=== PATIENT | female | born 1935 | race Caucasian/White ===

== ENCOUNTER 2017-10-21 17:10 | Emergency (ER) | payer OTHER ==
--- NOTE | 2017-10-21 18:06 | RAD REPORT ---
EXAM DESCRIPTION: CT - Head Brain Wo Cont - 10/21/2017 5:54 pm CLINICAL HISTORY: Altered mental status, dementia COMPARISON: CT study April 2011 TECHNIQUE: Axial 5 mm thick images of the head were obtained without IV contrast. All CT scans are performed using dose optimization technique as appropriate and may include automated exposure control or mA/KV adjustment according to patient size. FINDINGS: No intracranial hemorrhage, mass, edema or shift of mid-line structures. No acute cortical based infarction. No cortical edema or sulcal effacement. Prominent atrophy and chronic ischemic will nges are present progressive from 2010. No abnormal extra-axial fluid collections. Ventricular size r emains in proportion to volume loss. Arterial and physiologic calcifications are present. Mastoid air cells are clear. Frontal and sphenoid sinuses are opacified but only partially imaged. Ex am is not sufficient for paranasal sinus assessment. No acute bony findings. IMPRESSION: No acute intracranial finding. Advanced atrophy and chronic ischemic change progressive from 2010. Sphenoid and frontal sinus mucosal thickening. Sinuses are not adequately visualized to allow all tho rough assessment.
[2017-10-21 18:38] LABS: Absolute Lymphocytes (CBC) 1.1 K/uL (0.7-4.9); Absolute Monocytes 0.4 K/uL (0.1-1.3); Absolute Neutrophil 8.2 K/uL (1.8-8.0); Basophils % 0.6 % (0-1.3); Eosinophils % 0.1 % (0-4.4); Hematocrit 40.1 % (36.0-45.0); Lymphocytes % 10.8 % (15.3-44.8); MCH 29.3 pg (27.0-35.0); MCV 90.3 fL (80-100); Monocytes % 4.5 % (3.3-12.3); RBC Red Blood Cell Count 4.44 M/uL (3.86-4.86)
[2017-10-21 18:52] LABS: Potassium 4.1 mEq/L (3.6-5.0)
[2017-10-21 18:53] LABS: Magnesium 1.9 mg/dL (1.8-2.5)
[2017-10-21] MEDS ORDERED: NA CHLORIDE 0.9% 500 ML ONE (18:54)
--- NOTE | 2017-10-21 19:11 | ER ---
Nurse's Notes [facility] Name: Katlyn Mercado Age: 81 yrs Sex: Female : 1935 Arrival Date: 10/21/2017 Time: 17:12 Bed 26 Private MD: Diagnosis: Tremor, unspecified;Dehydration Presentation: 10/21 17:19 Presenting complaint: EMS states: patient normally has tremors but staff report that kr2 today they are worse. Transition of care: [place], [place]. Onset of symptoms. Care prior to arrival: None. 17:19 Method Of Arrival: EMS: [facility] kr2 17:19 Acuity: FABI 4 kr2 Triage Assessment: 17:20 General: Appears in no apparent distress. comfortable, slender, well groomed, well kr2 developed, well nourished, Behavior is calm, cooperative. Pain: Unable to use pain scale. Does not appear to understand pain scale. Patient appears quiet. Historical: - Allergies: 17:23 Amoxicillin; kr2 17:23 Doxycycline; kr2 17:23 Etodolac; kr2 17:23 Ibuprofen; kr2 17:23 Iodine; kr2 17:23 Lovastatin; kr2 17:23 Naproxen; kr2 17:23 Sulindac; kr2 17:23 PENICILLINS; kr2 17:23 IROVAN; kr2 17:23 TROVAN; kr2 - Immunization history:: Adult Immunizations unknown. - Social history:: Smoking status: Patient/guardian denies using tobacco. - Family history:: not pertinent. - Hospitalizations: : No recent hospitalization is reported. Screenin:20 Abuse screen: Denies threats or abuse. Denies injuries from another. Nutritional kr2 screening: No deficits noted. Tuberculosis screening: No symptoms or risk factors identified. Fall Risk Secondary diagnosis (15 points) dementia, impaired mobility. Assessment: 17:20 General: Appears in no apparent distress. comfortable, slender, well groomed, well kr2 developed, well nourished, Behavior is calm, cooperative. Pain: Unable to use pain scale. Does not appear to understand pain scale. Patient appears quiet. Neuro: Level of Consciousness is awake, alert, Oriented to Patient is non-verbal, smiles when spoken too. Neuro: mild tremor. Cardiovascular: Capillary refill < 3 seconds in bilateral fingers Patient's skin is warm and dry. Respiratory: Airway is patent Respiratory effort is even, unlabored, Respiratory pattern is regular, symmetrical. GI: Abdomen is flat, non-distended. EENT: Nares are clear bilaterally Oral mucosa is dry. Derm: Skin is intact, is fragile, is thin, with poor turgor. Musculoskeletal: Circulation, motion, and sensation intact. 18:30 Reassessment: Patient appears in no apparent distress at this time. Patient and/or kr2 family updated on plan of care and expected duration. Pain level reassessed. No signs/symptoms of pain, patient's daughters remain at bedside with patient. 19:24 Reassessment: Patient appears in no apparent distress at this time. Patient and/or kr2 family updated on plan of care and expected duration. Pain level reassessed. Patient being discharged, report called to Aye at [facility] in [place]. 19:55 Reassessment: Patient appears in no apparent distress at this time. Patient and/or kr2 family updated on plan of care and expected duration. Pain level reassessed. Family remains at bedside. Called facility back and Aye states transportation would be about an hour getting here. 21:05 Reassessment: Patient appears in no apparent distress at this time. Patient and/or kr2 family updated on plan of care and expected duration. Pain level reassessed. Transportation here from [place] to transport patient back to facility. Assisted patient to wheelchair with assist of 2 staff members without difficulty. Vital Signs: 17:19 BP 113 / 80; Pulse 65; Resp 15; Temp 97.8(A); Pulse Ox 98% on R/A; kr2 19:23 BP 134 / 79; Pulse 60; Resp 19; Pulse Ox 98% on R/A; kr2 19:56 BP 131 / 83; Pulse 62; Resp 16; Pulse Ox 97% on R/A; kr2 21:00 BP 132 / 76; Pulse 60; Resp 15; Pulse Ox 97% on R/A; kr2 ED Course: 17:12 Patient arrived in ED. ss 17:19 Trevor Gimenez MD is Attending Physician. rn 17:19 Diana Cox, SONYA is Primary Nurse. kr2 17:20 Arm band placed on. kr2 17:20 Patient has correct armband on for positive identification. Bed in low position. Call kr2 light in reach. Side rails up X2. Adult w/ patient. Pulse ox on. NIBP on. 17:21 Triage completed. kr2 17:55 Missed attempt(s): 24 gauge in right antecubital area. Bleeding controlled, band aid kr2 applied, catheter tip intact. 17:58 Missed attempt(s): 22 gauge in right antecubital area. Bleeding controlled, band aid kr2 applied, catheter tip intact. 18:00 Inserted saline lock: 22 gauge in left antecubital area, using aseptic technique. Blood ss collected. 19:22 No provider procedures requiring assistance completed. IV discontinued, intact, kr2 bleeding controlled, No redness/swelling at site. Pressure dressing applied. Administered Medications: 18:38 Drug: NS 0.9% 500 ml Route: IV; Rate: bolus; Site: left antecubital; kr2 19:26 Follow up: Response: No adverse reaction; IV Status: Completed infusion kr2 Outcome: 19:10 Discharge ordered by . rn 19:22 Condition: good kr2 19:22 Discharge instructions given to family, [facility], Instructed on discharge instructions, follow up and referral plans. Demonstrated understanding of instructions, follow-up care. 21:10 Discharged to [facility]. Report called to Aye at [facility] Transfer form kr2 completed. 21:13 Patient left the ED. kr2 Signatures: Trevor Gimenez MD MD rn Smirch, Shelby, RN RN ss Reaves, Karey, RN RN kr2 Corrections: (The following items were deleted from the chart) 18:42 18:39 BP 113 / 80; Pulse 65bpm; Resp 15bpm; Pulse Ox 98% RA; Temp 97.8F Axillary; kr2 kr2
--- NOTE | 2017-10-21 19:11 | EDPHYS ---
Physician Documentation [facility] Name: Katlyn Mercado Age: 81 yrs Sex: Female : 1935 Arrival Date: 10/21/2017 Time: 17:12 Bed 26 Private MD: ED Physician Trevor Gimenez HPI: 10/21 18:18 This 81 yrs old Female presents to ER via EMS with complaints of Tremor. rn 18:18 Per long term, patient with hx of tremors, but worse today, no seizure like rn activity, no trauma, daughter states acting normal, does notice more of a tremor, states has been asked before if has parkinsons. . Onset: The symptoms/episode began/occurred at an unknown time. Severity of symptoms: At their worst the symptoms were mild in the emergency department the symptoms have improved. The patient has experienced similar episodes in the past. The patient has not recently seen a physician. Historical: - Allergies: 17:23 Amoxicillin; kr2 17:23 Doxycycline; kr2 17:23 Etodolac; kr2 17:23 Ibuprofen; kr2 17:23 Iodine; kr2 17:23 Lovastatin; kr2 17:23 Naproxen; kr2 17:23 Sulindac; kr2 17:23 PENICILLINS; kr2 17:23 IROVAN; kr2 17:23 TROVAN; kr2 - Immunization history:: Adult Immunizations unknown. - Social history:: Smoking status: Patient/guardian denies using tobacco. - Family history:: not pertinent. - Hospitalizations: : No recent hospitalization is reported. ROS: 18:18 Unable to obtain ROS due to baseline dementia. rn Exam: 18:18 Constitutional: This is a well developed, well nourished patient who is awake, alert, rn and in no acute distress. Head/Face: Normocephalic, atraumatic. Eyes: Pupils equal round and reactive to light, extra-ocular motions intact. Lids and lashes normal. Conjunctiva and sclera are non-icteric and not injected. Cornea within normal limits. Periorbital areas with no swelling, redness, or edema. ENT: dry lips, dry MM Neck: Trachea midline, no thyromegaly or masses palpated, and no cervical lymphadenopathy. Supple, full range of motion without nuchal rigidity, or vertebral point tenderness. No Meningismus. Cardiovascular: Regular rate and rhythm with a normal S1 and S2. No gallops, murmurs, or rubs. Normal PMI, no JVD. No pulse deficits. Respiratory: Lungs have equal breath sounds bilaterally, clear to auscultation and percussion. No rales, rhonchi or wheezes noted. No increased work of breathing, no retractions or nasal flaring. Abdomen/GI: Soft, non-tender, with normal bowel sounds. No distension or tympany. No guarding or rebound. No evidence of tenderness throughout. Skin: Warm, dry, no evidence of cellulitis. MS/ Extremity: Pulses equal, no cyanosis. Neurovascular intact. Full, normal range of motion. Equal circumference. Neuro: Awake, alert, tracks, smiling and laughing but not communicative Vital Signs: 17:19 BP 113 / 80; Pulse 65; Resp 15; Temp 97.8(A); Pulse Ox 98% on R/A; kr2 19:23 BP 134 / 79; Pulse 60; Resp 19; Pulse Ox 98% on R/A; kr2 19:56 BP 131 / 83; Pulse 62; Resp 16; Pulse Ox 97% on R/A; kr2 21:00 BP 132 / 76; Pulse 60; Resp 15; Pulse Ox 97% on R/A; kr2 MDM: 17:19 Patient medically screened. rn 19:09 Differential Diagnosis tremor, dehydration, electrolyte disorder. Data reviewed: vital rn signs, nurses notes, lab test result(s), radiologic studies, CT scan, and as a result, I will discharge patient. Counseling: I had a detailed discussion with the patient and/or guardian regarding: the historical points, exam findings, and any diagnostic results supporting the discharge/admit diagnosis, lab results, radiology results, the need for outpatient follow up, to return to the emergency department if symptoms worsen or persist or if there are any questions or concerns that arise at home. Response to treatment: the patient's condition has returned to base line, patient is well hydrated. and as a result, I will discharge patient. Special discussion: I discussed with the patient/guardian in detail that at this point there is no indication for admission to the hospital. It is understood, however, that if the symptoms persist or worsen the patient needs to return immediately for re-evaluation. ED course: tremor resolved, family did not want cath for UA. Will dc back to long term.. 10/21 17:34 Order name: CBC with Diff rn 10/21 17:34 Order name: Basic Metabolic Panel rn 10/21 17:34 Order name: Magnesium rn 10/21 18:40 Order name: CBC with Automated Diff; Complete Time: 19:03 EDMS 10/21 18:52 Order name: Basic Metabolic Panel; Complete Time: 19:03 EDMS 10/21 18:53 Order name: Magnesium; Complete Time: 19:03 EDMS 10/21 17:34 Order name: IV Start; Complete Time: 18:38 rn 10/21 17:34 Order name: CT Head Brain wo Cont rn 10/21 18:06 Order name: CT; Complete Time: 19:03 EDMS Administered Medications: 18:38 Drug: NS 0.9% 500 ml Route: IV; Rate: bolus; Site: left antecubital; kr2 19:26 Follow up: Response: No adverse reaction; IV Status: Completed infusion kr2 Disposition: 10/21/17 19:10 Discharged to Home. Impression: Tremor, unspecified, Dehydration. - Condition is Stable. - Discharge Instructions: Dehydration, Adult, Tremor. - Medication Reconciliation Form, Thank You Letter, Antibiotic Education, Prescription Opioid Use, SBAR form form. - Follow up: Private Physician; When: As needed; Reason: Recheck today's complaints, Re-evaluation by your physician. - Problem is new. - Symptoms have improved. Signatures: Dispatcher [employer] EDTrevor Haley MD MD rn Reaves, Karey, RN RN kr2
== END 2017-10-21 21:13 | disposition home or self-care (01) ==
LOC: ER 17:10
DX: E86.0 Dehydration (principal); F03.90 Unspecified dementia, unspecified severity, without behavioral disturbance, psychotic disturbance, mood disturbance, and anxiety; Z88.0 Allergy status to penicillin; Z88.1 Allergy status to other antibiotic agents; Z88.3 Allergy status to other anti-infective agents; Z88.6 Allergy status to analgesic agent; Z91.048 Other nonmedicinal substance allergy status
CPT/HCPCS: 36415; 70450; 80048; 83735; 85025; 96360; 99284